=== PATIENT | male | born 1995 ===

== ENCOUNTER 2017-01-14 20:16 | Emergency (ER) | payer OTHER ==
[2017-01-14 20:38] VITALS: BP 138/79; PULSE 72; RESP 17; TEMP 98.6; O2SAT 100
[2017-01-14] MEDS ORDERED: diaZEpam 10 mg/2 ml Inj IVP ONE (20:39)
--- NOTE | 2017-01-14 20:54 | ED PDOC ---
Upper Extremity Pain/Injury Time Seen by Provider: 01/14/17 20:36 Chief Complaint (Nursing): Upper Extremity Problem/Injury Chief Complaint (Provider): Dislocated left shoulder History Per: Patient History/Exam Limitations: no limitations Onset/Duration Of Symptoms: Hrs Current Symptoms Are (Timing): Still Present Additional Complaint(s): Lennox Wellington, a 21 year old male, presents to the ED with a dislocated left shoulder. The patient states that while playing basketball he attempted to block another player and by doing this he injured his left shoulder. The patient states that he feels that his shoulder is out of place. He also reports that this is the third occurrence and he has never had a surgery. Denies numbness, tingling and nay other injury. Past Medical History Reviewed: Historical Data, Nursing Documentation, Vital Signs Vital Signs: Last Vital Signs Temp 98.6 F 01/14/17 20:34 Pulse 72 01/14/17 20:34 Resp 17 01/14/17 20:34 BP 138/79 01/14/17 20:34 Pulse Ox 100 01/14/17 20:34 - Medical History PMH: No Chronic Diseases - Surgical History Surgical History: No Surg Hx - Family History Family History: States: Unknown Family Hx - Allergies Allergies/Adverse Reactions: Allergies Allergy/AdvReac Type Severity Reaction Status Date / Time No Known Allergies Allergy Verified 01/14/17 20:38 Review of Systems Musculoskeletal: Positive for: Arm Pain, Other (Denies numbness, tingling to left shoulder.) Physical Exam - Reviewed Nursing Documentation Reviewed: Yes Vital Signs Reviewed: Yes - Physical Exam Appears: Positive for: Non-toxic, No Acute Distress Head Exam: Positive for: ATRAUMATIC, NORMOCEPHALIC Extremity: Positive for: Capillary Refill (Capillary refills less than 2 seconds.), Deformity (Left shoulder positive for deformity.), Other (Radial Pulse 2+.) Neurologic/Psych: Positive for: Alert, Oriented - ECG O2 Sat by Pulse Oximetry: 100 (RA) Pulse Ox Interpretation: Normal Medical Decision Making Medical Decision Makin:36 Initial impression: 21 year old male presenting with dislocated left shoulder Initial plan: * Valium 10mg IVP * left shoulder xray Scribe Attestation: Documented by Kenya Daly, acting as a scribe for Jet Maxwell PA-C., MD Scribe Attestation: All medical record entries made by the Scribe were at my direction and personally dictated by me. I have reviewed the chart and agree that the record accurately reflects my personal performance of the history, physical exam, medical decision making, and the department course for this patient. I have also personally directed, reviewed, and agree with the discharge instructions and disposition. Procedures - Time-Out Type of Procedure: L shoulder reduction Site of Procedure: L shoulder Correct Patient: Yes Correct Procedure: Yes Correct Site Marked: Yes X-Ray Marked: Yes EDWIN/Tech: Alissa - Joint Reduction Joint Reduction Site: shoulder (L) Conscious Sedation: No (Valium 10mg IV given.) Reduction Attempts: 1 Pre-Procedure NV Exam: Yes Post Joint Reduction Film: joint reduced Progress: Shoulder immobilized with immobilizer applied by PA. Post-reduction L shoulder x-rays: no fx or dislocation. As per roll examiner pt. has seen an orthopedist in the past due to the frequent shoulder dislocations. Pt. was informed that he would require surgery after the 3rd dislocation. Pt. and roll examiner instructed to return to orthopedist for further evaluation. Disposition - Clinical Impression Clinical Impression: Shoulder dislocation - Patient ED Disposition Is Patient to be Admitted: No - Disposition Disposition: Routine/Home Disposition Time: 21:50 Condition: STABLE Additional Instructions: Follow up with your orthopedist for further evaluation without fail. Instructions: Moderate Sedation (ED), Shoulder Dislocation (ED) Print Language: SPANISH
[2017-01-14] MEDS ORDERED: diaZEpam 10 mg/2 ml Inj ONE (21:10)
[2017-01-14] MEDS ORDERED: HYDROmorphone 0.5 mg/0.5 ml ISec ONE (21:10)
--- NOTE | 2017-01-14 22:15 | RAD ---
PROCEDURE: Radiographs of the Left Shoulder HISTORY: trauma COMPARISON: No prior. FINDINGS: BONES: No acute displaced fracture. The distal clavicle and underlying ribs appear intact. JOINTS: Humeral head inferior medially displaced consistent with anterior subluxation. SOFT TISSUES: Soft tissues appear unremarkable. No evidence of radiopaque foreign body. IMPRESSION: Anterior subluxation.
--- NOTE | 2017-01-14 22:19 | RAD ---
Indication: Postreduction, Y-view Left shoulder radiographs Comparison: Left shoulder radiographs performed same day Findings: The humeral head appears improved alignment. No acute displaced fracture appreciated. Soft tissue swelling. Otherwise grossly unremarkable. Impression: Improved alignment of the humeral head on limited provided views.
== END 2017-01-14 22:28 | disposition home or self-care (01) ==
LOC: H.ER 20:16
DX: M24.412 Recurrent dislocation, left shoulder (principal)

== ENCOUNTER 2017-03-28 09:32 | Day surgery (SDC) | payer OTHER ==
[2017-03-24 14:52] VITALS: BMI 29.9
[2017-03-28 10:03] VITALS: O2SAT 100
[2017-03-28] MEDS ORDERED: Lactated Ringer's 1,000 ML IV ONE ×2 (10:22→16:00)
[2017-03-28] MEDS ORDERED: Ropivacaine 0.5% 30ML IV ONE (13:53)
[2017-03-28] MEDS ORDERED: Neostigmine Methylsulfate 3mg/3ml Syringe IV ONE (13:53)
[2017-03-28] MEDS ORDERED: Dexamethasone 4 mg/1 ml ONE ×2 (13:53→14:03)
[2017-03-28] MEDS ORDERED: Rocuronium 10 mg/ml (5 ml) ONE ×2 (13:58→15:45)
[2017-03-28] MEDS ORDERED: Succinylcholine 200 mg/10 ml Inj IV ONE (13:58)
[2017-03-28] MEDS ORDERED: Lidocaine 4% (Laryng-O-Jet) Kit MM ONE (13:58)
[2017-03-28] MEDS ORDERED: Propofol 10 mg/ml Inj (20 ML) ONE ×2 (13:58→16:54)
[2017-03-28] MEDS ORDERED: Phenylephrine 10 mg/ml Inj ONE (13:58)
[2017-03-28] MEDS ORDERED: Lidocaine Hydrochloride 5 ML INJ ONE (13:58)
[2017-03-28] MEDS ORDERED: Midazolam 2 MG/2 ML VIAL ONE (14:46)
[2017-03-28] MEDS ORDERED: Bacitracin Ointment 30 GM TUBE ONE (14:49)
[2017-03-28] MEDS ORDERED: Lidocaine 2% w Epi 1:100,000 Inj IJ ONE (14:49)
[2017-03-28] MEDS ORDERED: Lactated Ringer's 500 ML IV ONE (17:05)
--- NOTE | 2017-03-28 17:11 | PCM.SURG1 ---
Surgeon's Initial Post Op Note - Surgeon's Notes Surgeon: Lay Lynch MD Printing Machinist: Garry Sandoval PA-C Type of Anesthesia: General Endo, Other (Intrascalene block ) Pre-Operative Diagnosis: Left shoulder bankart lesion Operative Findings: see op report Post-Operative Diagnosis: same as pre-op dx Operation Performed: Left shoulder arthroscopic bankart repair, synovectomy Specimen/Specimens Removed: none Estimated Blood Loss: EBL {In ML}: 5 Date of Surgery/Procedure: 03/28/17 Time of Surgery/Procedure: 16:00
[2017-03-28] MEDS ORDERED: Oxycodone/Acetaminophen 5/325 mg Tab PO PRN (17:14)
[2017-03-28] MEDS ORDERED: Lactated Ringer's 1,000 ML IV SCH (17:16)
[2017-03-28] MEDS ORDERED: HYDROmorphone 0.5 mg/0.5 ml ISec IVP PRN (17:16)
--- NOTE | 2017-03-28 17:20 | PCM.ANESB1 ---
Interscalene Block - Brachial Plexus Date of Procedure: 03/28/17 Anesthesiologist: Mattie Pre-Procedure Diagnosis: Left labral tear Post-Procedure Diagnosis: Same Procedure Performed: Interscalene Block of Brachial Plexus Left - Procedure Interscalene Block of Brachial Plexus: This procedure was explained to the patient that it is for post-operative pain management. Consent was obtained after a thorough discussion with the patient regarding the benefits and possible complications of local anesthetic block of the Brachial Plexus at the Interscalene area. The patient was brought to the Operating Room and standard monitors were applied. Time out was held with the circulating nurse to confirm the correct surgery and appropriate block. After applying Oxygen by nasal cannula and administering IV Sedation, the patient's head was gently rotated away from the ___left___operative shoulder and the anterior scalene groove was carefully palpated. The ultrasound transducer was then applied to the skin in the transverse plane and the brachial plexus was visualized lateral to the carotid artery and in between the anterior and middle scalene muscles. After identification,the anterior lateral portion of the neck was prepped with Betadine solution three times and Lidocaine 1% was injected subcutaneously for topical analgesia. At this point, a # 22 gauge Stimuplex 2 inches insulated needle was inserted into the interscalene groove and directed in a caudal and midline direction. The needle was inserted lateral to the ultrasound transducer in-plane towards the brachial plexus in a [id number] direction. Needle advancement was performed carefully under direct ultrasound visualization. Nerve stimulator was used and twitched of the affected extremity including the hand brachialis muscles, biceps and the deltoid was obtained at a current of __0.4___MA. After repeated negative aspiration,___2__cc of___0.5%__, ropivicaine were injected and this was followed with ___23__cc of ___0.5__% ropivicaine . Under ultrasound guidance the local anesthetics were observed surrounding the roots of the brachial plexus. The needle was removed intact and sterile dressing was applied. The patient had stable vital signs, was conscious and in no apparent distress. The patient tolerated the interscalene block of the bracheal plexus well with stable vital signs and was prepared for subsequent surgery.
[2017-03-28 19:20] VITALS: RESP 18
[2017-03-28 19:50] VITALS: BP 118/67; PULSE 66; TEMP 98
--- NOTE | 2017-03-29 02:12 | OP ---
PROCEDURE DATE: 03/28/2017 PREOPERATIVE DIAGNOSES: 1. Left shoulder anterior instability. 2. Bankart lesion. 3. Synovitis. POSTOPERATIVE DIAGNOSES: 1. Left shoulder Bankart lesion. 2. Loose bodies. 3. Extensive synovitis. 4. Chondral defect of the posterior humeral head. PROCEDURE: 1. Left shoulder arthroscopic Bankart repair. 2. Complete synovectomy. 3. Removal of loose bodies. 4. Chondroplasty of humeral head. SURGEON: Lay Lynch MD INSIDE SALES ADVISOR: Garry Sandoval PA-C. TYPE OF ANESTHESIA: General with interscalene block. ESTIMATED BLOOD LOSS: 5 mL. COMPLICATIONS: None. INDICATIONS: After failing a course of nonoperative therapy, the patient elected to undergo the above procedures. In the office the risks and possible complications of the shoulder arthroscopy were discussed in detail with the patient. These risks include, but are not limited to, continued pain, lack of motion, infection, vascular injury, and nerve injury including axillary nerve dysfunction, reflex sympathetic dystrophy, compartment syndrome, limb loss, and . The patient expressed an understanding of the risks and possible benefits of the procedure, and was also made aware of the alternatives to surgery. An informed consent was obtained, and was checked immediately preop. Procedure 1: The patient was correctly identified in the holding area and the left shoulder was marked with the surgeon's initials. The patient was transported to the operating room and placed in the supine position and regional interscalene block anesthesia was obtained. A preoperative orthopedic examination revealed a passive range of motion of 170 degrees of forward flexion, 70 degrees of external rotation, and 150 degrees of abduction. Stability examination revealed anterior instability. Procedure 2: The patient was then placed in a beach chair position utilizing the beach chair positioning device. The patient's head was stabilized and the indicated upper extremity was prepped and draped in the standard surgical fashion. The anatomic structures were outlined with a skin marker, and 1% lidocaine with epinephrine was injected into the posterior, anterior, and lateral portal areas. A #21-gauge spinal needle was placed in the glenohumeral joint from the posterior portal and 10 mL of sterile saline was injected into the glenohumeral joint. Return of fluid indicated correct needle placement into the joint. The needle was then withdrawn and a #11 blade was used to make a 1-cm incision at the posterior portal site. Next, the arthroscopic blunt trocar was inserted into the glenohumeral joint. A #21-gauge spinal needle was placed through the anterior rotator interval, and the anterior portal was made with a #11 blade after the spinal needle was withdrawn. A 7-mm cannula was then inserted after the skin incision was made and the arthroscopic probe was then used to examine the internal structures of the glenohumeral joint. With the shoulder in abducted and externally rotated position, the articular surface of the rotator cuff was visualized. The arthroscope and probe were then switched from posterior to anterior. The posterior labrum, posterior capsule, and biceps anchor reflection was then inspected with the arthroscope in the anterior portal position. Stability exam revealed anterior instability. Examination of the glenohumeral joint revealed: 1. Extensive synovitis. 2. Anterior inferior labral tear. 3. Chondral loose bodies. 4. Chondral defect of posterior humeral head. Excessive glenohumeralsynovitis was cleared with a 4.0 mm full radius shaver. The hypertrophic, erythematous synovium was resected. Hemostasis was maintained with the radiofrequency device. At this point, the anterior-inferior glenoid labral tear was addressed. An additional trans-subscapular portal was made with spinal needle localization, and a 7-mm cannula was inserted to obtain the correct angle for implant placement. Using an arthroscopic rasper, the glenoid surface was denuded down to bleeding bone. A SutureLasso passer was used to pass two #2 FiberTape sutures through the anterior-inferior labrum. An Arthrex PushLock bioabsorbable anchor was inserted using the standard technique at the 5 o'clock position after the inferior sutures were threaded through the end of the device. Proper anterior and inferior capsular tension was achieved, and the device was firmly impacted into the glenoid using a mallet. This technique was used for the superior implant as well. The shoulder was put through a range of motion, and anterior stability was confirmed by the absence of a drive-through sign as well as with an arthroscopic drawer test. At this point, multiple small chondral loose bodies were noted in the axillary pouch subscapularis recess areas. Using the aforementioned arthroscopic portals, loose bodies were removed with arthroscopic techniques including graspers and the shaver. The full radius shaver was used to mechanically debride loose chondral edges of the posterior humeral head, to a stable border. Extreme care was taken to not disrupt the adjacent chondral surface. The edge of the debrided area was probed to ensure chondral stability. At this point, the arthroscope was withdrawn from the glenohumeral joint and subacromial space was then entered using a blunt trocar. Gentle resistance sweeping against the coracoacromial ligament confirmed proper placement of the sheath and the arthroscope was inserted. A 1-cm incision was made at the inferolateral acromial area to create the lateral portal. Examination of the subacromial space revealed no bursitis is noted. The subacromial space was then irrigated with sterile saline, and closure was instituted with sutures. A dressing was placed consisting of Xeroform, 4x4's, ABD pads, and tape. The patient was placed in a sling with an ABD pad in the axilla. The patient was then placed in a supine position and extubated without incident. The patient was transferred to the recovery room in stable condition, having tolerated the procedure well. Postoperatively, the patient will be maintained in an abduction sling, also provided with my rehab protocol, defining the restriction and sling use for 6 weeks. Followup in 10 days. During this procedure, I was assisted by Garry Sandoval PA-C, who assisted in positioning the patient on the operating room table as well as transferring the patient from the operating room table to the recovery room stretcher. In addition, Garry Sandoval PA-C, assisted me during the actual operative procedure by positioning the patient's extremity to allow for easier arthroscopic access to all areas of the joint. The presence of Garry Sandoval PA-C, as my operative retail administrative assistant, was medically necessary to ensure the utmost safety of the patient in the pre, intra-, and postoperative periods. Lay Lynch MD [facility]
== END 2017-03-28 20:00 | disposition home or self-care (01) ==
LOC: H.OPSURG 09:32
PROVIDERS: ATTEND Orthopaedic Surgery
DX: M75.82 Other shoulder lesions, left shoulder (principal); M24.012 Loose body in left shoulder; M65.812 Other synovitis and tenosynovitis, left shoulder; M25.312 Other instability, left shoulder